=== PATIENT | male | born 1960 | race Caucasian/White ===

== ENCOUNTER 2017-01-13 11:15 | Inpatient (IN) | payer OTHER ==
[~2017-01-13] VITALS: Ht 175.3 cm; Wt 124.3 kg
--- NOTE | 2017-01-13 11:29 | NUR ---
PT BIBA FROM DOCTOR'S OFFICE FOR COUGHING UP BRIGHT RED BLOOD SINCE THIS MORNING AROUND 0855. PT DENIES ANY SOB, CHEST PAIN, NIGHT SWEATS, FEVER, CHILLS. REPORTS, "DRY COUGH, BUT IT'S THAT SMOKERS COUGH." PT ON 81 MG ASPIRIN DAILY. PT HYPERTENSIVE ON ARRIVAL 198/119 MANUALLY. DENIES ANY COMPLAINTS AT THIS TIME.
[2017-01-13 11:57] LABS: ABSOLUTE BASOPHIL COUNT 0 /CUMM (0.0-0.2); ABSOLUTE EOSINOPHIL COUNT 0.1 /CUMM (0.0-0.7); ABSOLUTE GRANULOCYTE CT 6.2 /CUMM (1.4-6.5); ABSOLUTE LYMPH COUNT 2.6 /CUMM (1.2-3.4); ABSOLUTE MONOCYTE COUNT 0.9 /CUMM (0.10-0.60); BASOPHIL % 0.5 % (0.0-2.0); EOSINOPHIL % 1.4 % (0-5); GRANULOCYTE % 62.5 % (42.2-75.2); HEMATOCRIT 49.5 % (42-52); MEAN CORPUSCULAR HGB 30.4 PG (27.0-31.0); MEAN CORPUSCULAR HGB CONC 34.4 G/DL (33.0-37.0); MEAN CORPUSCULAR VOLUME 88.2 FL (80.0-94.0); MEAN PLATELET VOLUME 10.4 FL (7.4-10.4); PLATELET COUNT 175 /CUMM (130-400); RBC DISTRIBUTION WIDTH 13.9 % (11.5-14.5); RED BLOOD CELL CT 5.61 /CUMM (4.70-6.10); WHITE BLOOD CELL COUNT 9.9 /CUMM (4.8-10.8)
--- NOTE | 2017-01-13 12:01 | NUR ---
PER LAB SST NEEDS TO BE REDRAWN
[2017-01-13 12:10] LABS: PT 10.2 SEC (9.4-12.5); PTT 32 SEC (25-37)
--- NOTE | 2017-01-13 12:39 | ED GENERAL ADULT ---
History of Present Illness General Chief Complaint: General Adult Stated Complaint: BIBA ? GI BLEED Source: patient, family, old records Exam Limitations: no limitations Vital Signs & Intake/Output Vital Signs & Intake/Output Vital Signs Date Time Temp Pulse Resp B/P Pulse O2 O2 Flow FiO2 Ox Delivery Rate 01/13 1800 98.9 80 20 182/115 94 Room Air 01/13 1732 97.3 74 16 160/92 92 Room Air 01/13 1521 98.3 75 20 168/92 93 Room Air 01/13 1317 98.0 68 18 165/84 98 Room Air 01/13 1239 Room Air Room Air 01/13 1118 97.9 90 18 198/118 97 Room Air Allergies Coded Allergies: No Known Allergies (01/13/17) Reconcile Medications Aspirin (Ecotrin*) 81 MG TABLET.DR 1 TAB PO DAILY HEART/BLOOD (Reported) Atorvastatin Calcium 20 MG TABLET 1 TAB PO DAILY CHOLESTEROL (Reported) Cholecalciferol (Vitamin D3) (Vitamin D) 1,000 UNIT TABLET 1 TAB PO DAILY SUPPLEMENT (Reported) Cyanocobalamin (Vitamin B-12) 1,000 MCG TABLET 1 TAB PO DAILY SUPPLEMENT ( Reported) Losartan Potassium 50 MG TABLET 1 TAB PO DAILY HEART/BP (Reported) Metformin HCl (Metformin HCl ER) 500 MG TAB.ER.24H 2 TAB PO QPM DM (Reported) Metoprolol Succinate 100 MG TAB.ER.24H 1 TAB PO DAILY HEART/BP (Reported) Triage Note: PT BIBA FROM DOCTOR'S OFFICE FOR COUGHING UP BRIGHT RED BLOOD SINCE THIS MORNING AROUND 0855. PT DENIES ANY SOB, CHEST PAIN, NIGHT SWEATS, FEVER, CHILLS. REPORTS, "DRY COUGH, BUT IT'S THAT SMOKERS COUGH." PT ON 81 MG ASPIRIN DAILY. PT HYPERTENSIVE ON ARRIVAL 198/119 MANUALLY. DENIES ANY COMPLAINTS AT THIS TIME. Triage Nurses Notes Reviewed? yes Onset: Just prior to arrival Duration: hour(s):, continues in ED, intermittent Timing: recent history Injury Environment: work Severity: moderate No Modifying Factors: none Associated Symptoms: cough HPI: Couple hours prior to admission at work patient complains of coughing up blood. He went to his PMD and continued with episodes of coughing blood with mucus covering the bottom of a cup. He denies fever chills nausea vomiting diarrhea abdominal pain chest pain shortness breath headache dysuria rash previous episodes. Past History Travel History Traveled to [place] past 21 day No Medical History Any Pertinent Medical History? 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 No Review of Systems Review of Systems Constitutional: Reports: no symptoms. EENTM: Reports: no symptoms. Respiratory: Reports: see HPI, cough, hemoptysis. Cardiovascular: Reports: no symptoms. GI: Reports: no symptoms. Genitourinary: Reports: no symptoms. Musculoskeletal: Reports: no symptoms. Skin: Reports: no symptoms. Neurological/Psychological: Reports: no symptoms. Hematologic/Endocrine: Reports: no symptoms. Immunologic/Allergic: Reports: no symptoms. All Other Systems: Reviewed and Negative Physical Exam Physical Exam General Appearance: well developed/nourished, alert, awake, anxious, mild distress, obese Head: atraumatic, normal appearance Eyes: Bilateral: normal appearance, PERRL, EOMI. Ears, Nose, Throat: normal pharynx, normal ENT inspection Neck: normal inspection, supple, full range of motion, no midline tenderness Respiratory: chest non-tender, no respiratory distress, quiet respiration, rhonchi, wheezing Cardiovascular: regular rate/rhythm, normal peripheral pulses, norml femoral pulses equa Peripheral Pulses: 4+ carotid (R), 4+ carotid (L) Gastrointestinal: normal bowel sounds, soft, non-tender, no organomegaly Back: normal inspection, normal range of motion Extremities: normal inspection, normal capillary refill, normal range of motion, no edema Neurologic/Psych: no motor/sensory deficits, awake, alert, oriented x 3, normal gait, normal mood/affect, 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 Skin: intact, normal color, warm/dry Lymphatic: no anterior cervical nimo Core Measures ACS in differential dx? No CVA/TIA Diagnosis: No Severe Sepsis Present: No Septic Shock Present: No Progress Differential Diagnoses I considered the following diagnoses in my evaluation of the patient: Plan of Care: Orders Procedure Date/time Status Heart Healthy Diet 01/14 B Active LIPID PANEL 01/14 06 Active CBC WITHOUT DIFFERENTIAL 01/14 06 Active BASIC ELECTROLYTES PLUS BUN&CR 01/14 06 Active Regular Diet 01/13 L Complete CULTURE,URINE 01/13 1750 Active STREP PNEUMO URINARY ANTIGEN 01/13 1750 Active LEGIONELLA URINARY ANTIGEN 01/13 1750 Active LOWER RESPIRATORY CULTURE 01/13 1750 Active URINALYSIS 01/13 1750 Active Pathway - chart 01/13 1733 Active House Staff 01/13 1733 Active Patient Data 01/13 1733 Active Code Status 01/13 1733 Active Intake & Output 01/13 1728 Active Patient Data 01/13 1602 Active OXYGEN SETUP (GEN) 01/13 1555 Active Saline Lock 01/13 1555 Active Admit to inpatient 01/13 1555 Active Vital Signs 01/13 1555 Active Activity/Ambulation 01/13 1555 Active Code Status 01/13 1555 Complete BLOOD CULTURE 01/13 1540 Active PARTIAL THROMBOPLASTIN TIME 01/13 1137 Complete PROTHROMBIN TIME 01/13 1137 Complete COMPREHENSIVE METABOLIC PANEL 01/13 1137 Complete CBC WITHOUT DIFFERENTIAL 01/13 1137 Complete VTE Mechanical Prophylaxis 01/13 UNK Active FingerStick- Glucose 01/13 UNK Active Current Medications Sig/Ralph Start time Last Medication Dose Stop Time Status Admin Atorvastatin Calcium 20 MG 1700 01/14 1700 AC (Lipitor) Azithromycin 500 MG DAILY 01/14 1000 AC (Zithromax) Sodium Chloride 250 ML (Normal Saline 0.9%) Ceftriaxone Sodium 1,000 MG DAILY 01/14 1000 AC (Rocephin) Cholecalciferol 1,000 IU DAILY 01/14 1000 AC (Vitamin D) Cyanocobalamin 1,000 MCG DAILY 01/14 1000 AC (Vitamin B12) Metoprolol Succinate 100 MG DAILY 01/14 1000 AC (Toprol Xl) Insulin Aspart 0 TIDAC 01/14 0800 AC (NovoLOG) Laboratory Tests 01/13/17 1212: Anion Gap 5, Estimated GFR > 60, BUN/Creatinine Ratio 21.3, Glucose 126 H, Calcium 9.5, Total Bilirubin 0.5, AST 47, ALT 65, Alkaline Phosphatase 90, Total Protein 6.4, Albumin 4.0, Globulin 2.4, Albumin/Globulin Ratio 1.7 01/13/17 1140: PT 10.2, INR 0.97, APTT 32, CBC w Diff NO MAN DIFF REQ, RBC 5.61, MCV 88.2, MCH 30.4, RDW 13.9, MPV 10.4, Gran % 62.5, Lymphocytes % 26.1, Monocytes % 9.5 H, Eosinophils % 1.4, Basophils % 0.5, Absolute Granulocytes 6.2, Absolute Lymphocytes 2.6, Absolute Monocytes 0.9 H, Absolute Eosinophils 0.1, Absolute Basophils 0, PUBS MCHC 34.4 Microbiology 01/13 1750 URINE ROUT: Legionella Antigen - COLB 01/13 1750 URINE ROUT: Streptococcus pneumoniae Antigen (M - COLB 01/13 1750 URINE ROUT: Urine Culture - COLB 01/13 1750 LOWER RESP: Respiratory Culture - COLB 01/13 1750 LOWER RESP: Gram Stain - COLB 01/13 1614 BLOOD: Blood Culture - RECD 01/13 1600 BLOOD: Blood Culture - RECD Diagnostic Imaging: Viewed by Me: Radiology Read, CT Scan. Discussed w/RAD: Radiology Read, CT Scan. Radiology Impression: 1. Adequate contrast opacification of the pulmonary arterial vasculature, without evidence of pulmonary embolism to the level of the subsegmental pulmonary arteries. No large central pulmonary emboli. 2. Paraseptal emphysematous changes, notably within the bilateral upper lobes. 3. Scattered nodular and patchy groundglass opacities within the bilateral upper lobes and to a lesser extent within the right middle lobe. There is also peribronchial thickening, notably within the right upper lobe with debris visualized within several bronchioles. These findings are nonspecific but may be infectious or inflammatory in etiology. 4. Incidental 7 mm nodule within the right lower lobe. Also noted is a tubular opacity within the anteromedial region of the left upper lobe. These findings are nonspecific but may be infectious, inflammatory or neoplastic in etiology. Recommend attention on follow-up imaging per Fleischner Society CXR Impression: no acute abnormality, no infiltrates, normal size heart, normal mediastinum Initial ED EKG: none Departure Departure Disposition: STILL A PATIENT Condition: Stable Clinical Impression Primary Impression: Cough with hemoptysis Secondary Impressions: Pneumonia Qualifiers: Pneumonia type: due to unspecified organism Laterality: right Lung location: unspecified part of lung Qualified Code: J18.9 - Pneumonia, unspecified organism Referrals: REYNOLD GEE,JERI Slade (PCP/Family) Departure Forms: Customer Survey General Discharge Information Admission Note Spoke With: BRET ROSADO MD Documentation of Exam: Documentation of any treatments & extenuating circumstances including Concerns Regarding Discharge (functional status, medication knowledge or non-compliance, living conditions, etc.) that warrant an admission rather than observation: Serial lab exam IV antibiotics IV steroids pulmonary evaluation beta agonist nebs medication adjustment continuing care discharge planning Critical Care Note Critical Care Note Critical Care Time: non-applicable
--- NOTE | 2017-01-13 12:49 | RADIOLOGY REPORT ---
EXAMINATION: XR CHEST CLINICAL INFORMATION: Pneumonia cough hemoptysis COMPARISON: None TECHNIQUE: 2 views of the chest were obtained. FINDINGS: No significant abnormality is noted involving the heart, lungs, mediastinum, bony thorax or soft tissues. IMPRESSION: Unremarkable examination.
--- NOTE | 2017-01-13 13:51 | NUR ---
PT TO GO TO CAT SCAN IN 5 MNS.
[2017-01-13] MEDS ORDERED: ATORVASTATIN CA20 M1 PO (13:58)
[2017-01-13] MEDS ORDERED: ASPIRIN EC81 M1 PO (13:58)
[2017-01-13] MEDS ORDERED: METOPROLOL SUC100 M2 PO (13:59)
[2017-01-13] MEDS ORDERED: VITAMIN B-121000 MC3 PO (13:59)
[2017-01-13] MEDS ORDERED: VITAMIN D1000 UNIT PO (13:59)
[2017-01-13] MEDS ORDERED: METFORMIN HCL500 M4 PO (13:59)
[2017-01-13] MEDS ORDERED: LOSARTAN POTASS50 M1 PO (14:00)
--- NOTE | 2017-01-13 15:14 | CT SCAN REPORT ---
EXAMINATION: CT ANGIOGRAM OF THE CHEST WITH AND WITHOUT CONTRAST (CT PULMONARY ANGIOGRAM FOR PE) CLINICAL INFORMATION: Hemoptysis and a smoker. Evaluate for pulmonary embolism. COMPARISON: None. TECHNIQUE: Prior to contrast administration, noncontrast localization images were obtained. Subsequently, multidetector volumetric imaging was performed from the thoracic inlet to below the diaphragms following the administration of 98 mL Optiray 320 intravenous contrast. No contrast reaction reported. Sagittal, coronal, and MIP oblique sagittal reformatted images were obtained on the CT workstation, uploaded to PACS, and reviewed. Total exam dose-length product 588 mGy-cm. FINDINGS: QUALITY OF STUDY/CONTRAST BOLUS: Adequate contrast opacification of the pulmonary arterial vasculature. PULMONARY ARTERIES: No evidence of pulmonary embolism to the level of the subsegmental pulmonary arteries. No large central pulmonary emboli. THORACIC AORTA: Normal caliber of the thoracic aorta. Bovine configuration of the aortic arch. No centrally displaced intraluminal flaps to suggest aortic dissection. The thoracic aorta and main pulmonary artery are normal in caliber. LUNG: Evaluation of the lung parenchyma demonstrates scattered paraseptal emphysematous changes, notably within the bilateral lung apices. In addition to these findings, there are patchy and nodular groundglass opacities within the right upper lobe, and to lesser extent within the right middle lobe and right upper lobe, with associated peribronchial thickening and mucoid impaction of the bronchioles. Of note, there is a 0.7 cm pulmonary nodule within the right lower lobe (series 4, image 27). Also noted is a 2.7 cm tubular opacity within the anteromedial region of the left upper lobe, which may reflect atelectasis versus soft tissue (series 4, image 190). The central trachea is patent, without endobronchial obstructing lesions. PLEURA: No pleural effusions or pneumothoraces. MEDIASTINUM: Normal heart size, without significant pericardial effusion. Prominent mediastinal lymph nodes. For instance, there is a prominent lymph node within the aortopulmonary window measuring 1.4 x 1.7 cm (series 4, image 156). There is a prominent precarinal lymph node measuring 1.5 cm in short axis dimension. Also noted is prominent right hilar adenopathy measuring 1.3 x 1.9 cm (series 4, image 185). There is a prominent lymph nodes within the subcarinal region measuring 1.0 x 2.7 cm (series 4, image 193). No evidence of septal bowing or right heart strain. CHEST WALL/AXILLA: No axillary or internal mammary lymphadenopathy. OSSEOUS STRUCTURES: No acute or suspicious osseous abnormality. UPPER ABDOMEN: No acute findings within the upper abdomen. Incidental note is made of a small radiopaque gallstones within the gallbladder lumen measuring 5 mm. There are no secondary signs of acute cholecystitis. There is a simple renal cortical cyst arising from the upper pole of the right kidney measuring 1.4 cm. Also noted is diffuse low-attenuation of the liver parenchyma, indicative of diffuse hepatic steatosis. No reflux of contrast into the hepatic veins to suggest elevated right heart pressures. IMPRESSION: 1. Adequate contrast opacification of the pulmonary arterial vasculature, without evidence of pulmonary embolism to the level of the subsegmental pulmonary arteries. No large central pulmonary emboli. 2. Paraseptal emphysematous changes, notably within the bilateral upper lobes. 3. Scattered nodular and patchy groundglass opacities within the bilateral upper lobes and to a lesser extent within the right middle lobe. There is also peribronchial thickening, notably within the right upper lobe with debris visualized within several bronchioles. These findings are nonspecific but may be infectious or inflammatory in etiology. 4. Incidental 7 mm nodule within the right lower lobe. Also noted is a tubular opacity within the anteromedial region of the left upper lobe. These findings are nonspecific but may be infectious, inflammatory or neoplastic in etiology. Recommend attention on follow-up imaging per Fleischner Society guidelines, as detailed below. 5. Diffuse hepatic steatosis. 6. Cholelithiasis, without secondary signs of acute cholecystitis. 7. Prominent mediastinal and right hilar lymph nodes. These lymph nodes are nonspecific. Various management parameters for solitary pulmonary nodules are in the literature. According to the Fleischner Society, recommendations for pulmonary nodules are as follows: Nodule size > 6-8 mm in HIGH RISK PATIENTS: Initial follow up CT at 3-6 months, then 9-12 months and 24 months if no change. VTE: Negative.
--- NOTE | 2017-01-13 15:35 | NUR ---
LEFT MESSAGE FOR DINING SERVICE, ASKING FOR A REGULAR DIET
--- NOTE | 2017-01-13 16:03 | History & Physical ---
CASIE WEINER 01/13/17 1603: General Information and HPI MD Statement: I have seen and personally examined FLORENCIA CHICAS and documented this H&P. The patient is a 56 year old M who presented with a patient stated chief complaint of [Coughing up blood]. Source of Information: patient, family Exam Limitations: no limitations History of Present Illness: Mr Chicas is a 56-year-old gentleman with a PMH of HTN, HLD, type II DM, vitamin D deficiency, vitamin B12 deficiency, tobacco dependence 40 years (1 PPD) presents with complaints of new onset coughing up bloody sputum. He states that he has had a chronic morning cough that he attributes to be secondary to his tobacco use, usually dry lasting most the morning but subsiding by 11 AM. Over the past 3 weeks he reports a noticeable increase in his cough that seems to have become even more pronounced over the past 7 days. He denies any fever, chills, palpitations, sore throat associated with this. This morning while smoking a cigarette around 0855 hrs. he felt as if he was given a have a productive cough but noticed that the sputum contained blood in it. This was followed by what he describes as a gurgling sensation in his upper chest followed by multiple episodes of haydee bright red blood totaling less than half a cup. He went to see his PCP where again he had a second episode of coughing up bright red blood of about half a cup which point she was sent to the ER. ROS: He denies any sick contacts, weight loss, night sweats, nausea, vomiting, abdominal pain during this time. The only change to his medication was the addition of losartan approximately 1 week ago. He denies any family history of cancer. Allergies/Medications Allergies: Coded Allergies: No Known Allergies (01/13/17) Home Med list Aspirin (Ecotrin*) 81 MG TABLET.DR 1 TAB PO DAILY HEART/BLOOD (Reported) Atorvastatin Calcium 20 MG TABLET 1 TAB PO DAILY CHOLESTEROL (Reported) Cholecalciferol (Vitamin D3) (Vitamin D) 1,000 UNIT TABLET 1 TAB PO DAILY SUPPLEMENT (Reported) Cyanocobalamin (Vitamin B-12) 1,000 MCG TABLET 1 TAB PO DAILY SUPPLEMENT ( Reported) Losartan Potassium 50 MG TABLET 1 TAB PO DAILY HEART/BP (Reported) Metformin HCl (Metformin HCl ER) 500 MG TAB.ER.24H 2 TAB PO QPM DM (Reported) Metoprolol Succinate 100 MG TAB.ER.24H 1 TAB PO DAILY HEART/BP (Reported) Past History Travel History Traveled to [place] past 21 day No Medical History Neurological: NONE EENT: NONE Cardiovascular: hypertension, hyperlipidemia Respiratory: NONE Gastrointestinal: NONE Hepatic: NONE Renal: NONE Musculoskeletal: NONE Psychiatric: NONE Endocrine: NIDDM Blood Disorders: ?LOW VITAMIN D & B LEVEL Cancer(s): NONE VP HOME HEALTH/Reproductive: NONE Influenza Vaccine: 08/12/08 Surgical History Surgical History: appendectomy Past Family/Social History Psychosocial History ETOH Use: denies use Illicit Drug Use: denies illicit drug use Review of Systems Review of Systems Constitutional: Reports: see HPI. EENTM: Reports: see HPI. Cardiovascular: Reports: no symptoms. Respiratory: Reports: see HPI. GI: Reports: no symptoms. Genitourinary: Reports: no symptoms. Musculoskeletal: Reports: no symptoms. Skin: Reports: no symptoms. Hematologic/Endocrine: Reports: see HPI. Exam & Diagnostic Data Last 24 Hrs of Vital Signs/I&O Vital Signs Date Time Temp Pulse Resp B/P Pulse O2 O2 Flow FiO2 Ox Delivery Rate 01/13 1732 97.3 74 16 160/92 92 Room Air 01/13 1521 98.3 75 20 168/92 93 Room Air 01/13 1317 98.0 68 18 165/84 98 Room Air 01/13 1239 Room Air Room Air 01/13 1118 97.9 90 18 198/118 97 Room Air Intake & Output 01/13 1600 01/13 0800 01/13 0000 Intake Total Output Total Balance Patient 274 lb Weight Physical Exam General Appearance Alert, Cooperative, No Acute Distress Skin No Breakdown HEENT EOMI, Mucous Membr. moist/pink Neck No LAD Cardiovascular Regular Rate, Normal S1, Normal S2, S4 gallop most prominent in the pulmonic region Lungs Normal Air Movement Abdomen Normal Bowel Sounds, Soft, No Tenderness Neurological Normal Speech, Normal Tone, Sensation Intact Extremities Normal Pulses, 2+ pitting edema BL LE Vascular Pulses Symmetrical Last 24 Hrs of Labs/Matti: Laboratory Tests 01/13/17 1212: Anion Gap 5, Estimated GFR > 60, BUN/Creatinine Ratio 21.3, Glucose 126 H, Calcium 9.5, Total Bilirubin 0.5, AST 47, ALT 65, Alkaline Phosphatase 90, Total Protein 6.4, Albumin 4.0, Globulin 2.4, Albumin/Globulin Ratio 1.7 01/13/17 1140: PT 10.2, INR 0.97, APTT 32, CBC w Diff NO MAN DIFF REQ, RBC 5.61, MCV 88.2, MCH 30.4, RDW 13.9, MPV 10.4, Gran % 62.5, Lymphocytes % 26.1, Monocytes % 9.5 H, Eosinophils % 1.4, Basophils % 0.5, Absolute Granulocytes 6.2, Absolute Lymphocytes 2.6, Absolute Monocytes 0.9 H, Absolute Eosinophils 0.1, Absolute Basophils 0, PUBS MCHC 34.4 Microbiology 01/13 1614 BLOOD: Blood Culture - RECD 01/13 1600 BLOOD: Blood Culture - RECD Diagnostic Data CXR Results Unremarkable examination. Other Results Chest CTA: 1. Adequate contrast opacification of the pulmonary arterial vasculature, without evidence of pulmonary embolism to the level of the subsegmental pulmonary arteries. No large central pulmonary emboli. 2. Paraseptal emphysematous changes, notably within the bilateral upper lobes. 3. Scattered nodular and patchy groundglass opacities within the bilateral upper lobes and to a lesser extent within the right middle lobe. There is also peribronchial thickening, notably within the right upper lobe with debris visualized within several bronchioles. These findings are nonspecific but may be infectious or inflammatory in etiology. 4. Incidental 7 mm nodule within the right lower lobe. Also noted is a tubular opacity within the anteromedial region of the left upper lobe. These findings are nonspecific but may be infectious, inflammatory or neoplastic in etiology. Recommend attention on follow-up imaging per Fleischner Society guidelines, as detailed below. 5. Diffuse hepatic steatosis. 6. Cholelithiasis, without secondary signs of acute cholecystitis. 7. Prominent mediastinal and right hilar lymph nodes. These lymph nodes are nonspecific. Various management parameters for solitary pulmonary nodules are in the literature. According to the Fleischner Society, recommendations for pulmonary nodules are as follows: Nodule size > 6-8 mm in HIGH RISK PATIENTS: Initial follow up CT at 3-6 months, then 9-12 months and 24 months if no change. Assessment/Plan Assessment: 56-year-old gentleman with a PMH of HTN, HLD, type II DM, vitamin D deficiency, vitamin B12 deficiency, tobacco dependence 40 years (1 PPD) who presents with complaints of multiple episodes coughing up blood. VS on admission: BP 198/118, RR 19, SPO2 97% on RA, RR 18, T 97.9 Pertinent labs: H&H 17.7/49.5, WBC 9.9, platelets 175K, sodium 136, potassium 4.2, BUN/Cr 17/0.8, glucose 126 INR: 0.[address] is indicated above Problem list: 1. Hemoptysis 2. Multiple lung nodules 3. Hypertensive urgency 4. Diabetes 5. Hyperlipidemia 6. Tobacco dependence 7. Vitamin B12 deficiency 8. Vitamin deficiency Plan: * We'll admit the patient to general medicine floor * DDX: CAP. We'll start ceftriaxone 1 g and azithromycin 500 mg IV daily. Follow-up sputum, urine strep/Legionella antigens * We'll hold aspirin in the setting of hemoptysis * Based on CT findings as indicated above Will obtain pulmonology consult for possible bronchoscopy * Hypertensive urgency: We'll continue the patient on metoprolol 100 mg daily. In the setting of chronic cough with exacerbation recently, will discontinue losartan. Consider starting the patient on amlodipine 5 mg daily for better blood pressure control * Accu-Cheks, low-dose sliding scale * Patient is currently on atorvastatin 20 mg daily. Repeat lipid panel in the a.m, recalculate ASCVD score and adjust statin dosage per guidelines * Counseled the patient on tobacco cessation. Follow-up on Wellbutrin versus Chantix versus nicotine patch * Continue vitamin D supplementation * Continue vitamin B12 supplementation * Diabetic diet * DVT prophylaxis: ALPs * Full code As Ranked By This Provider Problem List: 1. Hemoptysis 2. Multiple lung nodules on CT 3. Hyperlipidemia 4. Hypertensive urgency 5. Diabetes 6. Tobacco dependence Core Measures/Miscellaneous Acute Coronary Syndrome ACS Diagnosis: No Cerebrovascular Accident CVA/TIA Diagnosis: No Congestive Heart Failure CHF Diagnosis: No Venous Thromboembolism VTE Risk Factors: Age > 40 No [facility] V[facility] prophylaxis d/t: No contraindications No VTE Pharm Prophylaxis d/t: Active bleeding VTE Diagnosis: No VTE Type: NONE VTE Confirmed by (Test): NONE Severe Sepsis Severe Sepsis Present: No Septic Shock Septic Shock Present: No Miscellaneous Documentation Attending Case Discussed With: BRET ROSADO MD Primary Care Physician: JERI FLAHERTY MD Patient sees these Specialists NA Level of Patient Care: General Medicine Resident Review Statement Resident Statement: examined this patient, discussed with fashion intern, agreed with fashion intern, discussed with family, reviewed EMR data (avail), discussed with nursing , reviewed images BRET ROSADO MD 01/13/176: Attending MD Review Statement Attending Statement Attending MD Statement: examined this patient, discuss w/resident/PA/FOAM RUBBER MOLDER, agreed w/resident/PA/FOAM RUBBER MOLDER, reviewed EMR data (avail) Attending Assessment/Plan: 56M PMH HTN, HLD, T2DM, active PPD smoker x 40 years presenting with hemoptysis, 10mL x2 events, otherwise asymptomatic aside from chronic cough that is unchanged. No recent infectious symptoms. Henodynamically stable, Hgb 17. CT shows evidence of bronchiectasis and bilateral pneumonia. WIll treat with Ceftriaxone, Azithromycin, sputum culture and cytology, pulmonary consult, ALPS for DVT PPx, continue home medications
--- NOTE | 2017-01-13 16:19 | NUR ---
BLOOD CULTURES DRAWN PT MEDICATED PER EMAR, PT RESTING IN NO DISTRESS
--- NOTE | 2017-01-13 16:32 | NUR ---
FOOD TRAY ORDERED FOR PT.
--- NOTE | 2017-01-13 17:19 | NUR ---
NURSE TO CALL BACK FOR REPORT.
--- NOTE | 2017-01-13 17:26 | NUR ---
REPORT GIVEN TO JUDI LANDRY.
--- NOTE | 2017-01-13 17:44 | NUR ---
PT STABLE FOR TRANSPORT UPSTAIRS
[2017-01-13 18:00] VITALS: BP 182/115
--- NOTE | 2017-01-13 20:30 | NUR ---
NURSING NOTE: PT STATED HE RECENTLY TRAVELED TO [place] AND SINCE EARLY YESTERDAY MORNING HAS BEEN COUGHING UP BLOOD. SUBWAY CAR REPAIRER 137 MADE AWARE. PPD TEST ORDERED. SURGICAL MASK ON PT, PT MOVED TO PRIVATE ROOM. AIRBORNE PRECAUTIONS IN PLACE. AWAIT FURTHER ORDERS FROM MD. WILL CONTINUE TO MONITOR.
--- NOTE | 2017-01-13 20:30 | NUR ---
NURSING NOTE: BP BLOOD PRESSURE 168/100. MATHEMATICS IMPROVEMENT TEACHER 137 MADE AWARE. BLOOD PRESSURE MEDS ORDERED. WILL CONTINUE TO MONITOR.
--- NOTE | 2017-01-13 20:37 | NUR ---
NSG NOTE: PATIENT ARRIVED TO FLOOR AT 1747 FROM ED ACCOMPANIED BY DISTRIBUTION AND FAMILY; PATIENT A/OX3; RA; BLOOD PRESSURE ___; OTHERWISE VSS; PATIENT REPORTS HE TRAVELED TO [place] 6 WEEKS AGO AND FAMILY MEMBER ASKED IF TB TESTING WAS DONE; CLIENT ENGAGEMENT SPECIALIST AND SPECIAL EDUCATION INCLUSION TEACHER AWARE ALONG WITH PATTERNMAKER GRADER; PATIENT STATES HE WAS NOT ASKED THIS DOWNSTAIRS IN ED; PATTERNMAKER GRADER PAGED FOR PATIENTS HIGH BLOOD PRESSURE WHICH WAS RECHECKED AND 168/100; PATIENT OTHERWISE INDEPENDENT IN ROOM; GIVEN URINAL FOR URINALYSIS; PATIENT AWARE HE NEEDS TO COLLECT SPUTUM SAMPLE FOR TESTING; VALENTÍN RN ON BOARD AFTER THIS RN GAVE REPORT FOR NEXT SHIFT; CLIENT ENGAGEMENT SPECIALIST SWEETIE ON BOARD AND NOTIFYING SUPERVISIOR OF THESE CHANGES;
--- NOTE | 2017-01-13 21:18 | Admission Certification ---
Admission Certification Certification Statement - As attending physician, I certify that at the time of - admission, based on clinical presentation, severity of - symptoms, need for further diagnostic testing and - therapeutic interventions, and risk of adverse outcomes - without in-hospital treatment, in my clinical assessment, - this patient requires an acute hospital stay for a minimum - of two nights or longer. I have also considered psychsocial - factors such as support system, advanced age, financial - issues, cognitive issues, and failed out-patient treatments, - past re-admission history, safety of patient, and lack of - compliance as applicable. Specific rationale supporting this admission is: New onset hemoptysis x 2 events
--- NOTE | 2017-01-13 22:27 | Event Note ---
Event Note Event Note: I was notified by the nurse that the patient is coughing up blood. The patient and the family were worried about tuberculosis infection as he recently travelled to [place]. They want him to be tested for tuberculosis. PPD skin test done - inner left forearm INTRADERMALLY quantiferon assay AFB SMEAR - ORDERED isolation precaution
[2017-01-14 00:54] VITALS: BP 174/102
--- NOTE | 2017-01-14 00:54 | NUR ---
LATE ENTRY: PTS BP 174/102. 10 MG AMLODIPINE GIVEN. PT DENIES CHEST PAIN, HEADACHE. WILL RECHECK BLOOD PRESSURE IN 1 HOUR.
[2017-01-14 02:23] VITALS: BP 138/76
--- NOTE | 2017-01-14 02:23 | NUR ---
NURSING NOTE: PTS BLOOD PRESSURE CAME DOWN TO 138/76 AFTER GIVING AMLODIPINE. PT OFFERS NO COMPLAINTS AT THIS TIME. WILL CONTINUE TO MONITOR.
[2017-01-14 06:23] VITALS: BP 128/84
--- NOTE | 2017-01-14 07:19 | PN- Housestaff ---
JERRICA GEE,[facility] 01/14/17 0719: Subjective Follow-up For: Hemoptysis Subjective: Patient is in airborne isolation for possible TB, he was sitting comfortably on chair, patient reported severe cough over the last week after he started lisinopril, this morning he reported very scant amount of sputum that's blood tingled. Patient denied any fever, chills, chest pain, shortness of breath, fever or night sweats. Review of Systems Constitutional: Reports: see HPI. Objective Last 24 Hrs of Vital Signs/I&O Vital Signs Date Time Temp Pulse Resp B/P Pulse O2 O2 Flow FiO2 Ox Delivery Rate 01/14 1434 97.7 77 20 144/75 95 / 0942 72 126/80 / 0800 96 Room Air Room Air 01/14 0623 97.9 76 20 128/84 92 Room Air 01/14 0223 138/76 04/ 0054 97.8 76 18 174/102 92 Room Air 01/14 0046 174/102 04/05 0000 Room Air 01/13 1800 98.9 80 20 182/115 94 Room Air 01/13 1745 Room Air Intake & Output 01/14 1600 01/14 0800 04/05 0000 Intake Total 800 590 Output Total Balance 800 590 Intake, IV 350 Intake, Oral 800 240 Patient 124.284 kg Weight Physical Exam General Appearance: Alert, Oriented X3, Cooperative, No Acute Distress Skin: No Rashes, No Breakdown, No Significant Lesion HEENT: Atraumatic, PERRLA, EOMI, Mucous Membr. moist/pink Neck: Supple Cardiovascular: Regular Rate, Normal S1, Normal S2, No Murmurs Lungs: Clear to Auscultation, Normal Air Movement Abdomen: Normal Bowel Sounds, Soft, No Tenderness Neurological: Normal Gait, Normal Speech, Strength at 5/5 X4 Ext, Normal Tone, Sensation Intact, Cranial Nerves 3-12 NL, Reflexes 2+ Extremities: No Clubbing, No Cyanosis, No Edema, Normal Pulses Assessment/Plan Assessment: 56-year-old gentleman with a PMH of HTN, HLD, type II DM, vitamin D deficiency, vitamin B12 deficiency, tobacco dependence 40 years (1 PPD) who presents with complaints of multiple episodes coughing up blood. Chest x-ray was obtained on admission that was unremarkable CTA 01/13/17 was obtained to rule out PE and revealed 1. Adequate contrast opacification of the pulmonary arterial vasculature, without evidence of pulmonary embolism to the level of the subsegmental pulmonary arteries. No large central pulmonary emboli. 2. Paraseptal emphysematous changes, notably within the bilateral upper lobes. 3. Scattered nodular and patchy groundglass opacities within the bilateral upper lobes and to a lesser extent within the right middle lobe. There is also peribronchial thickening, notably within the right upper lobe with debris visualized within several bronchioles. These findings are nonspecific but may be infectious or inflammatory in etiology. 4. Incidental 7 mm nodule within the right lower lobe. Also noted is a tubular opacity within the anteromedial region of the left upper lobe. These findings are nonspecific but may be infectious, inflammatory or neoplastic in etiology. Recommend attention on follow-up imaging per Fleischner Society guidelines, as detailed below. 5. Diffuse hepatic steatosis. 6. Cholelithiasis, without secondary signs of acute cholecystitis. 7. Prominent mediastinal and right hilar lymph nodes. These lymph nodes are nonspecific. Problem list: 1. Hemoptysis 2. Multiple lung nodules 3. Hypertensive urgency 4. Diabetes 5. Hyperlipidemia 6. Tobacco dependence 7. Vitamin B12 deficiency 8. Vitamin deficiency Plan: #Hemoptysis in setting of abnormal CTA * History of acute onset of hemoptysis over 1 day, improved, patient has very scanty amount of sputum blood tingled * 40 years smoking history with family history of lung cancer in both parents because of excessive smoking * Recent history of travel to [place] 6 weeks ago * Patient was started recently on lisinopril, he reported history of excessive coughing for the last week * Hemoptysis could be of infectious cause TB to be rule out, inflammatory will obtain ESR and C-reactive protein or malignancy * PPT was placed at 10 PM 01/13/17 to rule out TB * Quantiferon and sputum culture for acid-fast bacilli to follow * Patient is afebrile and no leukocytosis on admission (17.4 this morning mostly because of Solu-Medrol he received an ED) * Continue ceftriaxone and azithromycin Day#2 given CTA findings * Pulmonary consultation was obtained, thanks for recommendation * Sputum, urine strep/Legionella antigens Negative * Continue to hold aspirin * Nicotine patch #Hypertension and hyperlipidemia * Continue metoprolol XL 100 mg daily * Continue atorvastatin 20 mg daily #Diabetes mellitus * Accu check and NovoLog sliding scale TIDAC and before bedtime #Continue home medication * Continue vitamin D supplementation * Continue vitamin B12 supplementation Diet Diabetic DVT prophylaxis: ALPs Full code Isolation airborne Consultation pulmonology Problem List: 1. Hemoptysis 2. Multiple lung nodules on CT 3. Hyperlipidemia 4. Diabetes 5. Hypertensive urgency 6. Tobacco dependence 7. Pneumonia Pain Ratin Pain Location: None Pain Goal: Pain 4 or less Pain Plan: Mild pain pathway Tomorrow's Labs & Rationales: None JAMIL BREWSTER MD 01/14/17 1303: Attending MD Review Statement Attending Statement Attending MD Statement: examined this patient, discuss w/resident/PA/VISUAL EDUCATION TEACHER, agreed w/resident/PA/VISUAL EDUCATION TEACHER, reviewed EMR data (avail), discussed with nursing, discussed with case mgmt, reviewed images, amended to note Attending Assessment/Plan: Patient seen and examined. Ambulating freely around his room. Not in any distress. Reports mild cough with little phlegm. Denies chest pain. Denies shortness of breath. He reports that he was in his usual state of health until he was started on lisinopril about a week ago for blood pressure control. He immediately developed nonproductive cough which has been going on continuously for about a week. Suddenly yesterday he began with hemoptysis. He has had no episodes of hemoptysis so far today. He does report significant smoking history , family history of lung cancer in his father mother although be were both smokers and a recent travel history. On examination lungs are clear bilaterally. He has no cervical adenopathy. Differentials include infectious causes, malignancy or inflammatory causes. Recommendations: -Follow-up workup for tuberculosis with sputum AFB and once for on testing. -There is no suggestion of fungal lung infection on imaging. -If above workup for tuberculosis is negative he will benefit from undergoing a bronchoscopy. Timing will be decided upon by the pulmonary service. -Check ESR level. If significantly elevated will consider workup for connective tissue disease. So far renal function is within normal limits and he has only mild proteinuria. -His clotting profile is not suggestive of an underlying disorder of coagulation. -Follow-up with the pulmonary service regarding need for continued use of antibiotic therapy. Discuss case with the pulmonary service whether a pro- calcitonin level will be helpful in determining need for continued antibiotic therapy. -It is likely that his hemoptysis is due to irritation from frequent coughing caused by his TYREE inhibitor -He'll require outpatient monitoring of his 7 mm right lower lobe nodule.
[2017-01-14 08:29] LABS: PLATELET COUNT 186 /CUMM (130-400)
[2017-01-14 09:31] LABS: ABSOLUTE BASOPHIL COUNT 0.1 /CUMM (0.0-0.2); ABSOLUTE EOSINOPHIL COUNT 0.1 /CUMM (0.0-0.7); ABSOLUTE LYMPH COUNT 2.3 /CUMM (1.2-3.4); BASOPHIL % 0.4 % (0.0-2.0); EOSINOPHIL % 0.4 % (0-5); GRANULOCYTE % 80.4 % (42.2-75.2); HEMATOCRIT 49.5 % (42-52); MEAN CORPUSCULAR HGB 30.2 PG (27.0-31.0); MEAN CORPUSCULAR HGB CONC 33.7 G/DL (33.0-37.0); MEAN CORPUSCULAR VOLUME 89.7 FL (80.0-94.0); MEAN PLATELET VOLUME 11.2 FL (7.4-10.4); RBC DISTRIBUTION WIDTH 14.2 % (11.5-14.5); RED BLOOD CELL CT 5.52 /CUMM (4.70-6.10)
--- NOTE | 2017-01-14 09:34 | Cons- Pulmonary ---
General Information and HPI Consulting Request Date of Consult: 01/14/17 Requested By: jaylen Reason for Consult: Hemoptysis History of Present Illness: . 56-year-old gentleman without prior respiratory history is admitted with an episode of self-limited hemoptysis. Patient smokes pack per day and has done so for approximately 40 years. Over the past week or so he's had increasing cough and congestion without fevers chills chest pain. Yesterday he had cough productive of 10-15 mL of blood. He said no hemoptysis since he's had no purulent sputum. He denies recent chest x-ray. He has had recent travel and repeated travel to [place]. He is unaware of prior TB exposure or testing. CT scan of his chest shows faint nonspecific groundglass opacities and a pleural- based density in the right midlung chest x-ray was normal Allergies/Medications Allergies: Coded Allergies: No Known Allergies (01/13/17) Home Med List: Aspirin (Ecotrin*) 81 MG TABLET.DR 1 TAB PO DAILY HEART/BLOOD (Reported) Atorvastatin Calcium 20 MG TABLET 1 TAB PO DAILY CHOLESTEROL (Reported) Cholecalciferol (Vitamin D3) (Vitamin D) 1,000 UNIT TABLET 1 TAB PO DAILY SUPPLEMENT (Reported) Cyanocobalamin (Vitamin B-12) 1,000 MCG TABLET 1 TAB PO DAILY SUPPLEMENT ( Reported) Losartan Potassium 50 MG TABLET 1 TAB PO DAILY HEART/BP (Reported) Metformin HCl (Metformin HCl ER) 500 MG TAB.ER.24H 2 TAB PO QPM DM (Reported) Metoprolol Succinate 100 MG TAB.ER.24H 1 TAB PO DAILY HEART/BP (Reported) Review of Systems Review of Systems Constitutional: Denies: chills, fever, malaise, weakness, unexplained weight loss. Cardiovascular: Denies: chest pain, edema. Respiratory: Reports: cough, hemoptysis. Denies: short of breath, stridor, wheezing. GI: Denies: abdominal pain, diarrhea, melena. Genitourinary: Denies: dysuria. Past History Travel History Traveled to [place] past 21 day No Medical History Blood Transfusion Hx: No Neurological: NONE EENT: NONE Cardiovascular: hypertension, hyperlipidemia Respiratory: NONE Gastrointestinal: NONE Hepatic: NONE Renal: NONE Musculoskeletal: NONE Psychiatric: NONE Endocrine: NIDDM Blood Disorders: ?LOW VITAMIN D & B LEVEL Cancer(s): NONE BAKER BREAD/Reproductive: NONE Surgical History Surgical History: appendectomy Psychosocial History Where Do You Live? Home Services at Home: None Smoking Status: Unknown If Ever Smoked ETOH Use: denies use Illicit Drug Use: denies illicit drug use Exam & Diagnostic Data Last 24 Hrs of Vital Signs/I&O Vital Signs Date Time Temp Pulse Resp B/P Pulse O2 O2 Flow FiO2 Ox Delivery Rate 01/14 0800 96 Room Air Room Air 01/14 0623 97.9 76 20 128/84 92 Room Air 01/14 0223 138/76 04 0054 97.8 76 18 174/102 92 Room Air 01/14 0046 174/102 04 0000 Room Air 01/13 1800 98.9 80 20 182/115 94 Room Air 01/13 1745 Room Air 01/13 1732 97.3 74 16 160/92 92 Room Air 01/13 1521 98.3 75 20 168/92 93 Room Air 01/13 1317 98.0 68 18 165/84 98 Room Air 01/13 1239 Room Air Room Air 01/13 1118 97.9 90 18 198/118 97 Room Air Intake & Output 01/14 1600 01/14 0800 04 0000 Intake Total 590 Output Total Balance 590 Intake, IV 350 Intake, Oral 240 Patient 274 lb Weight Patient is awake alert obese gentleman HNT exam shows no adenopathy exam of his chest shows clear lung benson are no focal crackles or wheezes cardiac exam shows regular S1 and S2 without murmurs abdominal exam is obese nontender he has no clubbing Last 48 Hrs of Labs/Matti: Laboratory Tests 01/14/17 0700: Anion Gap 10, Estimated GFR > 60, BUN/Creatinine Ratio 18.8, Triglycerides 93, Cholesterol 189, LDL Cholesterol, Calc 110, HDL Cholesterol 61 H, Cholesterol/ HDL Ratio 3, CBC w Diff Pending, WBC Pending, RBC Pending, Hgb Pending, Hct Pending, MCV Pending, MCH Pending, RDW Pending, Plt Count Pending, MPV Pending, PUBS MCHC Pending 01/13/17 1212: Anion Gap 5, Estimated GFR > 60, BUN/Creatinine Ratio 21.3, Glucose 126 H, Calcium 9.5, Total Bilirubin 0.5, AST 47, ALT 65, Alkaline Phosphatase 90, Total Protein 6.4, Albumin 4.0, Globulin 2.4, Albumin/Globulin Ratio 1.7 01/13/17 1140: PT 10.2, INR 0.97, APTT 32, CBC w Diff NO MAN DIFF REQ, RBC 5.61, MCV 88.2, MCH 30.4, RDW 13.9, MPV 10.4, Gran % 62.5, Lymphocytes % 26.1, Monocytes % 9.5 H, Eosinophils % 1.4, Basophils % 0.5, Absolute Granulocytes 6.2, Absolute Lymphocytes 2.6, Absolute Monocytes 0.9 H, Absolute Eosinophils 0.1, Absolute Basophils 0, PUBS MCHC 34.4 01/13/17 1000: Urine Color STRAW, Urine Clarity CLEAR, Urine pH 6.5, Ur Specific [place] 1.010, Urine Protein 30 H, Urine Ketones NEG, Urine Nitrite NEG, Urine Bilirubin NEG, Urine Urobilinogen 0.2, Ur Leukocyte Esterase NEG, Ur Microscopic SEDIMENT EXAMINED, Urine RBC 15-25 H, Ur Epithelial Cells RARE, Urine Bacteria RARE H, Urine Hemoglobin MOD H, Urine Glucose >=1000 H Assessment/Plan Impression/Plan: 56-year-old gentleman with [id number] smoking history has had a self-limited episode of hemoptysis preceded by several days of increasing cough and congestion without constitutional symptoms. At scan shows faint groundglass bilateral upper lobe densities of uncertain significance. Concern is raised over primary pulmonary malignancy, bronchitis secondary to smoking, bacterial lung infection, and possible tuberculosis because of travel exposure and upper lobe predominance, Recommendations: Sputum for routine C&S AFB and cytology. Place PPD. Obtain QuantiFERON Gold. if These are unrevealing fiber-optic bronchoscopy would be indicated Consult Acknowledgment - Thank you for your consult request.
[2017-01-14 09:59] LABS: WHITE BLOOD CELL COUNT 17.4 /CUMM (4.8-10.8)
[2017-01-14 14:34] VITALS: BP 144/75
[2017-01-14 21:44] VITALS: BP 150/90; BP 162/90
[2017-01-15 06:53] VITALS: BP 148/78
--- NOTE | 2017-01-15 07:18 | PN- Housestaff ---
JERRICA GEE,[facility] 01/15/17 0717: Subjective Follow-up For: Hemoptysis Subjective: Patient was seen and examined this morning, he is sitting comfortably on chair moving around the room has no complaint. He reported improvement of coughing, he is barely coughing with no sputum production. He reported 4-5 times of diarrhea since yesterday watery diarrhea associated with abdominal pain, nausea, vomiting. Patient denied any fever, chills, night sweats. Review of Systems Constitutional: Reports: see HPI. Objective Last 24 Hrs of Vital Signs/I&O Vital Signs Date Time Temp Pulse Resp B/P Pulse O2 O2 Flow FiO2 Ox Delivery Rate 01/15 0939 74 148/78 / 0800 93 Room Air 01/15 0653 98.4 74 18 148/78 93 Room Air 01/15 0000 Room Air 01/14 2144 98.0 68 20 150/90 93 Room Air / 1434 97.7 77 20 144/75 95 Intake & Output 01/15 1600 01/15 0800 04/ 0000 Intake Total 490 870 Output Total Balance 490 870 Intake, IV 10 270 Intake, Oral 480 600 Physical Exam General Appearance: Alert, Oriented X3, Cooperative, No Acute Distress Skin: No Rashes, No Breakdown, No Significant Lesion, no reaction at the PPT test site HEENT: Atraumatic, PERRLA, EOMI, Mucous Membr. moist/pink Neck: Supple, No JVD Cardiovascular: Regular Rate, Normal S1, Normal S2, No Murmurs Lungs: Clear to Auscultation, Normal Air Movement Abdomen: Normal Bowel Sounds, Soft, No Tenderness Neurological: Normal Gait, Normal Speech, Strength at 5/5 X4 Ext, Normal Tone, Sensation Intact, Cranial Nerves 3-12 NL, Reflexes 2+ Extremities: No Clubbing, No Cyanosis, No Edema, Normal Pulses Assessment/Plan Assessment: 56-year-old gentleman with a PMH of HTN, HLD, type II DM, vitamin D deficiency, vitamin B12 deficiency, tobacco dependence 40 years (1 PPD) who presents with complaints of multiple episodes coughing up blood. Chest x-ray was obtained on admission that was unremarkable CTA 01/13/17 was obtained to rule out PE and revealed 1. Adequate contrast opacification of the pulmonary arterial vasculature, without evidence of pulmonary embolism to the level of the subsegmental pulmonary arteries. No large central pulmonary emboli. 2. Paraseptal emphysematous changes, notably within the bilateral upper lobes. 3. Scattered nodular and patchy groundglass opacities within the bilateral upper lobes and to a lesser extent within the right middle lobe. There is also peribronchial thickening, notably within the right upper lobe with debris visualized within several bronchioles. These findings are nonspecific but may be infectious or inflammatory in etiology. 4. Incidental 7 mm nodule within the right lower lobe. Also noted is a tubular opacity within the anteromedial region of the left upper lobe. These findings are nonspecific but may be infectious, inflammatory or neoplastic in etiology. Recommend attention on follow-up imaging per Fleischner Society guidelines, as detailed below. 5. Diffuse hepatic steatosis. 6. Cholelithiasis, without secondary signs of acute cholecystitis. 7. Prominent mediastinal and right hilar lymph nodes. These lymph nodes are nonspecific. Problem list: 1. Hemoptysis 2. Multiple lung nodules 3. Hypertensive urgency 4. Diabetes 5. Hyperlipidemia 6. Tobacco dependence 7. Vitamin B12 deficiency 8. Vitamin deficiency Plan: #Hemoptysis in setting of abnormal CTA * History of acute onset of hemoptysis over 1 day, improved * 40 years smoking history with family history of lung cancer in both parents because of excessive smoking * Recent history of travel to [place] 6 weeks ago * Patient was started recently on lisinopril, he reported history of excessive coughing for the last week * Hemoptysis could be of infectious cause TB (PPT so far negative), inflammatory (ESR and C-reactive protein WNL) or malignancy (7 mm nodule within the right lower lobe in CTA) * Quantiferon pending, AFB smear x3 negative, sputum culture pending * Patient is afebrile and no leukocytosis on admission (17.4 this morning mostly because of Solu-Medrol he received an ED) * Will discontinue ceftriaxone and azithromycin and start Augmentin by mouth to finish course of 7 days antibiotic * Pulmonary consultation was obtained, thanks for recommendation * Sputum, urine strep/Legionella antigens Negative * Continue to hold aspirin * Nicotine patch #Hypertension and hyperlipidemia * Continue metoprolol XL 100 mg daily * Continue atorvastatin 20 mg daily #Diabetes mellitus * Accu check and NovoLog sliding scale TIDAC and before bedtime #Continue home medication * Continue vitamin D supplementation * Continue vitamin B12 supplementation Diet Diabetic DVT prophylaxis: ALPs Full code Isolation airborne Consultation pulmonology Based on PPT results, AFB 3 negative and significant clinical improvement as the patient reported great improvement in his cough with no hemoptysis today, will discharge patient today to follow up next week with Dr. Johnson for bronchoscopy, patient was counseled for smoking cessation Problem List: 1. Hemoptysis Pain Ratin Pain Location: None Pain Goal: Pain 4 or less Pain Plan: Mild pain pathway Tomorrow's Labs & Rationales: None JMAIL BREWSTER MD 01/15/17 1510: Attending MD Review Statement Attending Statement Attending MD Statement: examined this patient, discuss w/resident/PA/CUSTOMS GUARD, agreed w/resident/PA/CUSTOMS GUARD, reviewed EMR data (avail), discussed with nursing, discussed with case mgmt, amended to note Attending Assessment/Plan: Seen and examined. He continues to do well. Denies any cough. Denies shortness of breath. He remains afebrile and hemodynamically stable. AFB has been negative 3. There is no evidence of reaction to PPD placed on the forearm. At this point is medically stable to be discharged. Case was discussed with the pulmonary service. Dr. Han Cortez recommends outpatient pulmonary follow-up for scheduling of fiberoptic bronchoscopy and serial follow- up of pulmonary nodules. Patient is in agreement with this plan. A sputum culture did grow much slower. This was discussed with the camera mechanic. He is recommending empiric antibiotic therapy for 7 days for possible bronchitis due to his history of chronic smoking. Leukocytosis present on admission is most likely due to the large steroid dose he received emergency room on the day of presentation. He is to continue on his home dose of metoprolol and losartan upon discharge.
--- NOTE | 2017-01-15 08:53 | PN- Pulmonary ---
Subjective HPI/Critical Care Issues: Patient feels well he's had no further hemoptysis. He reports having been started on lisinopril which precipitated significant coughing. Objective Current Medications: Current Medications Sig/Ralph Start time Last Medication Dose Route Stop Time Status Admin Atorvastatin Calcium 20 MG 1700 04/05 1700 AC 04/05 PO 1725 Azithromycin 500 MG Q24H / 1700 AC 04/05 Sodium Chloride 250 ML IV 1731 Azithromycin 500 MG DAILY / 1000 DC Sodium Chloride 250 ML IV Ceftriaxone Sodium 1,000 MG Q24H / 1630 AC 04/05 IV 1726 Ceftriaxone Sodium 1,000 MG DAILY / 1000 DC IV Cholecalciferol 1,000 IU DAILY / 1000 AC 01/14 PO 0942 Cyanocobalamin 1,000 MCG DAILY / 1000 AC 01/14 PO 0942 Insulin Aspart 0 TIDAC / 0800 AC 01/14 SC 1725 Metoprolol Succinate 100 MG DAILY / 1000 AC 01/14 PO 0942 Nicotine 14 MG DAILY 01/14 1739 AC 01/14 TOP 2122 Vital Signs & I&O Last 24 Hrs of Vitals and I&O: Vital Signs Date Time Temp Pulse Resp B/P Pulse O2 O2 Flow FiO2 Ox Delivery Rate 01/15 0653 98.4 74 18 148/78 93 Room Air 04/ 0000 Room Air / 2144 98.0 68 20 150/90 93 Room Air 04/05 1434 97.7 77 20 144/75 95 04/05 0942 72 126/80 Intake & Output / 1600 04/06 0800 04/ 0000 Intake Total 490 870 Output Total Balance 490 870 Intake, IV 10 270 Intake, Oral 480 600 Patient remains afebrile exam of his chest shows clear lung benson cardiac exam shows regular S1 and S2 without murmurs. PPD is negative to date Impression/Plan Impression/Plan Impression/Plan: 56-year-old gentleman with [id number] smoking history has had a self-limited episode of hemoptysis preceded by several days of increasing cough and congestion without constitutional symptoms. At scan shows faint groundglass bilateral upper lobe densities of uncertain significance. Concern is raised over primary pulmonary malignancy, bronchitis secondary to smoking, bacterial lung infection, and possible tuberculosis because of travel exposure and upper lobe predominance, hemoptysis has resolved Recommendations: Sputum for routine C&S AFB and cytology. Place PPD. Obtain QuantiFERON Gold. if These are unrevealing fiber-optic bronchoscopy would be indicated. Follow-up sputum C&S. Explanation for leukocytosis is unclear. If PPD remains negative and QuantiFERON is negative and hemoptysis abscess patient can be seen as an outpatient for fiberoptic bronchoscopy
[2017-01-15 10:43] LABS: ABSOLUTE BASOPHIL COUNT 0.1 /CUMM (0.0-0.2); ABSOLUTE EOSINOPHIL COUNT 0.1 /CUMM (0.0-0.7); ABSOLUTE GRANULOCYTE CT 8.6 /CUMM (1.4-6.5); ABSOLUTE LYMPH COUNT 2.4 /CUMM (1.2-3.4); ABSOLUTE MONOCYTE COUNT 0.8 /CUMM (0.10-0.60); BASOPHIL % 0.6 % (0.0-2.0); EOSINOPHIL % 0.9 % (0-5); GRANULOCYTE % 71.9 % (42.2-75.2); HEMATOCRIT 48.2 % (42-52); MEAN CORPUSCULAR HGB CONC 33.5 G/DL (33.0-37.0); MEAN CORPUSCULAR VOLUME 89.6 FL (80.0-94.0); MEAN PLATELET VOLUME 10.6 FL (7.4-10.4); PLATELET COUNT 166 /CUMM (130-400); RBC DISTRIBUTION WIDTH 14.1 % (11.5-14.5); RED BLOOD CELL CT 5.38 /CUMM (4.70-6.10)
[2017-01-15 14:18] VITALS: BP 157/98
[2017-01-15] MEDS ORDERED: AUGMENTIN 875-1 EACH PO (14:33)
--- NOTE | 2017-01-15 14:41 | Patient Discharge Instructions ---
Discharge Instructions General Discharge Information You were seen/treated for: Hemoptysis Special Instructions: -Please follow-up with your primary care physician within 1 week after discharge -Please follow up with Dr. Johnson within 1 week after discharge -Please take the antibiotic as directed Acute Coronary Syndrome Inclusion Criteria At DC or during hospital stay patient has or had the following: ACS DIAGNOSIS No Discharge Core Measures Meds if any: Prescribed or Continued at Discharge Meds if any: NOT Prescribed or Continued at Discharge Congestive Heart Failure Inclusion Criteria At DC or during hospital stay patient has or had the following: CHF DIAGNOSIS No Discharge Core Measures Meds if any: Prescribed or Continued at Discharge Meds if any: NOT Prescribed or Continued at Discharge Cerebrovascular accident Inclusion Criteria At DC or during hospital stay patient has or had the following: CVA/TIA Diagnosis No Discharge Core Measures Meds if any: Prescribed or Continued at Discharge Meds if any: NOT Prescribed or Continued at Discharge Venous thromboembolism Inclusion Criteria VTE Diagnosis No VTE Type NONE VTE Confirmed by (Test) CT CHEST ANGIOGRAM Discharge Core Measures - Per Current guidelines, there needs to be overlap - treatment for the first 5 days of Warfarin therapy. - If discharged on Warfarin prior to 5 days of - overlap therapy, the patient will need to be - assessed for post discharge needs including - *Post discharge parental anticoagulation - *Warfarin and/or parental anticoagulation education - *Follow up date to check INR post discharge At least 5 days overlap therapy as Inpatient Yes Meds if any: Prescribed or Continued at Discharge Note: Overlap Therapy is Warfarin and Anticoagulant Meds if any: NOT Prescribed or Continued at Discharge
--- NOTE | 2017-01-15 16:20 | Discharge Summary ---
Visit Information Visit Dates Admission Date: 01/13/17 Discharge Date: 01/15/17 Hospital Course Course Attending Physician: JAMIL BREWSTER M.D Primary Care Physician: JERI FLAHERTY MD Hospital Course: Mr. Chicas is 56-year-old male with past medical history significant for hypertension, hyperlipidemia, type II DM, vitamin D deficiency, vitamin B12 deficiency, tobacco dependence 40 years (1 PPD) who presents with complaints of multiple episodes coughing up blood. One week prior to admission, patient started to take lisinopril for hypertension , he reported excessive coughing throughout the week, he reported acute onset of productive cough with blood-tinged sputum, he went to PCP who switched lisinopril to losartan and advised him to visit the ED for evaluation He denied any history of sick contact, weight loss, night sweats, fever, chills, chest pain or shortness of breath. Had history of travel to [place] 6 weeks ago, family history of lung cancer in both parents however both of them were excessive smoker. On admission VS: BP 198/118, RR 19, SPO2 97% on RA, RR 18, T 97.9 Pertinent labs: H&H 17.7/49.5, WBC 9.9, platelets 175K, sodium 136, potassium 4.2, BUN/Cr 17/0.8, glucose 126, INR: 0.97 Imaging Chest x-ray was obtained on admission that was unremarkable CTA 01/13/17 was obtained to rule out PE and revealed 1. Adequate contrast opacification of the pulmonary arterial vasculature, without evidence of pulmonary embolism to the level of the subsegmental pulmonary arteries. No large central pulmonary emboli. 2. Paraseptal emphysematous changes, notably within the bilateral upper lobes. 3. Scattered nodular and patchy groundglass opacities within the bilateral upper lobes and to a lesser extent within the right middle lobe. There is also peribronchial thickening, notably within the right upper lobe with debris visualized within several bronchioles. These findings are nonspecific but may be infectious or inflammatory in etiology. 4. Incidental 7 mm nodule within the right lower lobe. Also noted is a tubular opacity within the anteromedial region of the left upper lobe. These findings are nonspecific but may be infectious, inflammatory or neoplastic in etiology. Recommend attention on follow-up imaging per Fleischner Society guidelines, as detailed below. 5. Diffuse hepatic steatosis. 6. Cholelithiasis, without secondary signs of acute cholecystitis. 7. Prominent mediastinal and right hilar lymph nodes. These lymph nodes are nonspecific. Patient was admitted to general medical floor for the following problems: 1. Hemoptysis 2. Multiple lung nodules 3. Hypertensive urgency 4. Diabetes 5. Hyperlipidemia 6. Tobacco dependence 7. Vitamin B12 deficiency 8. Vitamin deficiency Plan: #Hemoptysis in setting of abnormal CTA * History of acute onset of hemoptysis over 1 day (day of admission), on second day hospital stay patient was barely coughing with scant amount of blood tanged sputum, on the third day patient had no hemoptysis at all. Aspirin was put on hold on admission * Pulmonary consultation was obtained * Possible etiologies of hemoptysis in Mr. Chicas's case wre either infectious TB with recent history of travel to [place] (PPT and AFB smear x3), inflammatory ( ESR and C-reactive protein), airway disease and bronchitis with history of smoking and/or ruptured bullous emphysema (given CTA results) and finally malignancy (7 mm nodule within the right lower lobe in CTA with history of smoking 40 years) * For possible TB, patient was placed in airborne contact precaution, PPT test was negative, Quantiferon is still pending, AFB smear x3 negative, sputum culture positive for mixed vincent, AFP cultures are pending for 7 weeks. Other possible infectious causes were excluded urine strep/Legionella antigens Negative * For possible inflammatory process, ESR are and C-reactive protein were negative * Airway disease, patient was started on IV ceftriaxone and was azithromycin that was switched to oral Augmentin to finish 7 weeks of antibiotic for bronchitis. The abrupt onset and improvement of hemoptysis mostly reflect rupture of emphysematous bullae * Patient denied any history of fever or chills prior to admission, was afebrile throughout hospital stay no leukocytosis on admission (17.4 after 1 dose of Solu-Medrol in ED) * For possible malignancy, will obtain flexible bronchoscopy after discharge for tissue biopsy and follow-up lung nodule * Smoking cessation consolation and nicotine patch #Hypertension and hyperlipidemia * On admission, blood pressure was 198/118 that respond well to amlodipine 10 mg , blood pressure was well-controlled through out hospital stay with home medication metoprolol XL 100 mg daily. Losartan was resumed upon discharge * Atorvastatin 20 mg daily, lipid profile triglycerides 93, cholesterol 189, HDL 110, HDL 61 #Diabetes mellitus * On admission, metformin was put on hold, we started Accu check and NovoLog sliding scale TIDAC and before bedtime #Continue home medication * Continue vitamin D supplementation * Continue vitamin B12 supplementation Diet Diabetic DVT prophylaxis: ALPs Full code Consultation pulmonology Allergies: Coded Allergies: No Known Allergies (01/13/17) Disposition Summary Disposition Principal Diagnosis: Hemoptysis; probably from repeated coughing Pulmonary Nodule Additional Diagnosis: Hypertensive urgency Discharge Disposition: home or self care Discharge Instructions General Discharge Information Code Status: Full Code Patient's Diet: Diabetic diet Patient's Activity: As tolerated Follow-Up Instructions/Appts: -Please follow-up with your primary care physician within 1 week after discharge -Please follow up with Dr. Johnson within 1 week after discharge -Please take the antibiotic as directed Medications at Discharge Discharge Medications: Stop taking the following medications: Aspirin (Ecotrin*) 81 MG TABLET. ORAL DAILY Continue taking these medications: Atorvastatin Calcium (Atorvastatin Calcium) 20 MG TABLET 1 Tablet ORAL DAILY Qty = 90 Comments: Last Taken:01/14/17 Time:5:25PM Cholecalciferol (Vitamin D3) (Vitamin D) 1,000 UNIT TABLET 1 Tablet ORAL DAILY Comments: Last Taken:01/15/17 Time:9:39AM Cyanocobalamin (Vitamin B-12) 1,000 MCG TABLET 1 Tablet ORAL DAILY Comments: Last Taken:01/15/17 Time:9:39AM Metformin HCl (Metformin HCl ER) 500 MG TAB.ER.24H 2 Tablet ORAL Every night Qty = 60 Comments: NOT GIVEN IN HOSPITAL Metoprolol Succinate (Metoprolol Succinate) 100 MG TAB.ER.24H 1 Tablet ORAL DAILY Qty = 90 Comments: Last Taken:01/15/17 Time:9:39AM Losartan Potassium (Losartan Potassium) 50 MG TABLET 1 Tablet ORAL DAILY Qty = 30 Comments: NOT GIVEN IN HOSPITAL Start taking the following new medications: Amoxicillin/Potassium Clav (Augmentin 875-125 Tablet) 875 MG-125 MG TABLET 1 Tablet ORAL TWICE DAILY Qty = 9 No Refills Copies To: JAYNE GEE,JERI Victor; REYNOLD GEE,JERI JOHNSON MD,VALENTÍN Tamayo MD Review Statement Documenting Attending: JAMIL BREWSTER M.D Other Findings: I have reviewed the discharge summary.
== END 2017-01-15 15:53 | DRG 204 ==
LOC: ENRESERVDT → ENRESERVTM → ERH 11:15 → ERHI 15:55 → ENPENDDIS 15:55 → 2NB 15:55
PROVIDERS: Emergency Medicine; Internal Medicine; Student in an Organized Health Care Education/Training Program; ADMIT Internal Medicine
DX: R04.2 Hemoptysis (principal); I10 Essential (primary) hypertension; E11.9 Type 2 diabetes mellitus without complications; E55.9 Vitamin D deficiency, unspecified; E53.8 Deficiency of other specified B group vitamins; E78.5 Hyperlipidemia, unspecified; R91.8 Other nonspecific abnormal finding of lung field; I16.0 Hypertensive urgency; F17.210 Nicotine dependence, cigarettes, uncomplicated; Z79.84 Long term (current) use of oral hypoglycemic drugs
CPT/HCPCS: 86480; 81001; 82436; 87040; 87070; 87086; 87449; 87450; J0456; J0696; J2930; J7040; J7508